=== PATIENT | male | born 1990 | race African-American/Black ===

== ENCOUNTER 2017-05-05 19:49 | Emergency (ER) | payer SELFPAY ==
[2017-05-05 20:02] VITALS: BP 155/93
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
== END 2017-05-05 20:49 | disposition home or self-care (01) ==
LOC: JD.ED 19:49
DX: S61.213A Laceration without foreign body of left middle finger without damage to nail, initial encounter (principal); W45.8XXA Other foreign body or object entering through skin, initial encounter
CPT/HCPCS: 12001; 99282; 99283-25